=== PATIENT | female | born 1940 ===

== ENCOUNTER 2017-11-01 09:45 | Emergency (ER) | payer MEDICARE ==
[2017-11-01 09:52] VITALS: TEMP 97.5
--- NOTE | 2017-11-01 10:41 | RAD ---
PROCEDURE: Radiographs of the Left Shoulder HISTORY: fall COMPARISON: No prior. FINDINGS: BONES: No acute fracture. JOINTS: Glenohumeral and acromioclavicular joint degenerative changed. SOFT TISSUES: Normal. OTHER FINDINGS: None. IMPRESSION: No demonstrated fracture or dislocation.
--- NOTE | 2017-11-01 10:43 | RAD ---
PROCEDURE: Radiographs of the left humerus. HISTORY: fall COMPARISON: None. FINDINGS: BONES: No acute fracture. SOFT TISSUES: Normal. OTHER FINDINGS: None. IMPRESSION: Demonstrated fracture or dislocation.
--- NOTE | 2017-11-01 10:43 | RAD ---
PROCEDURE: Radiographs of the left elbow. HISTORY: fall COMPARISON: No prior. FINDINGS: BONES: No acute fracture. JOINTS: Mild joint space narrowing. SOFT TISSUES: Normal. JOINT EFFUSION: None. OTHER FINDINGS: None IMPRESSION: No demonstrated fracture or dislocation. Mild degenerative changes.
--- NOTE | 2017-11-01 10:51 | C.PDOC ---
History Of Present Illness 77 y/o female presents to ED with c/o of left arm pain developed yesterday after trip and fall. Patient reports mechanical fall and currently feels pain to left elbow and arm. Patient has not taken medication for pain and denies loc , dizziness, numbness or any other complaints at this time. - HPI Time Seen by Provider: 11/01/17 10:10 Chief Complaint (Nursing): Trauma History Per: Patient History/Exam Limitations: no limitations Onset/Duration Of Symptoms: Days Past Medical History Reviewed: Historical Data, Nursing Documentation, Vital Signs Vital Signs: Last Vital Signs Temp 97.5 F L 11/01/17 09:48 Pulse 81 11/01/17 10:57 Resp 16 11/01/17 10:57 BP 136/86 11/01/17 10:57 Pulse Ox 100 11/01/17 11:14 - Medical History PMH: Hypothyroidism Surgical History: Coronary Stent Family History: States: No Known Family Hx - Social History Hx Alcohol Use: No Hx Substance Use: No Review Of Systems Except As Marked, All Systems Reviewed And Found Negative. Musculoskeletal: Positive for: Arm Pain Physical Exam - Physical Exam Appears: Non-toxic, No Acute Distress Skin: Warm, Dry, No Rash Head: Atraumatic, Normacephalic Oral Mucosa: Moist Neck: Normal ROM, Supple Cardiovascular: Rhythm Regular Respiratory: Normal Breath Sounds, No Rales, No Rhonchi, No Wheezing Gastrointestinal/Abdominal: Soft, No Tenderness, No Guarding, No Rebound Extremity: Tenderness (left anterior shoulder and left elbow), Capillary Refill (<2 seconds), No Deformity Extremity: Bilateral: Normal ROM Neurological/Psych: Oriented x3, Normal Speech, Normal Cognition ED Course And Treatment O2 Sat by Pulse Oximetry: 100 (RA) Pulse Ox Interpretation: Normal Medical Decision Making Medical Decision Making: Assessment: Contusion Progress: Xray showed no fracture Patient had sling administered and d/c with instructed follow up to PMD in 2 days . Disposition Counseled Patient/Family Regarding: Studies Performed, Diagnosis, Need For Followup, Rx Given - Disposition Referrals: Nona Nuno MD [Medical Doctor] - Disposition: HOME/ ROUTINE Disposition Time: 10:50 Condition: STABLE Additional Instructions: follow up with your doctor in 2 days call to make an appointment pain medication and ice motrin or advil return to ER if symptoms worsens or progress Prescriptions: traMADol [Ultram] 50 mg PO TID PRN #12 tab PRN Reason: Pain, Moderate (4-7) Instructions: Contusion (DC) Forms: [facility] (Czech), General Discharge Instructions - Clinical Impression Clinical Impression: Contusion - Scribe Statement The provider has reviewed the documentation as recorded by the Janiceibstephanie Anderson All medical record entries made by the Janiceibe were at my direction and personally dictated by me. I have reviewed the chart and agree that the record accurately reflects my personal performance of the history, physical exam, medical decision making, and the department course for this patient. I have also personally directed, reviewed, and agree with the discharge instructions and disposition.
[2017-11-01 10:58] VITALS: BP 136/86; PULSE 81; RESP 16
[2017-11-01 11:14] VITALS: O2SAT 100
== END 2017-11-01 10:57 | disposition home or self-care (01) ==
LOC: C.ER 09:45
DX: T14.8XXA Other injury of unspecified body region, initial encounter (principal); W01.0XXA Fall on same level from slipping, tripping and stumbling without subsequent striking against object, initial encounter; E03.9 Hypothyroidism, unspecified